=== PATIENT | female | born 1995 | race African-American/Black ===

== ENCOUNTER 2017-09-16 02:50 | Inpatient (IN) | payer OTHER, MEDICAID ==
[2017-09-16 03:22] LABS: APPEARANCE,URINE CLOUDY; BILIRUBIN,URINE NEGATIVE (NEGATIVE); COLOR,URINE YELLOW; GLUCOSE, URINE NEGATIVE (NEGATIVE); KETONES,URINE TRACE mg/dL (NEGATIVE); LEUKOCYTE ESTERASE,URINE MODERATE (NEGATIVE); NITRITE,URINE NEGATIVE (NEGATIVE); PROTEIN,URINE 30 mg/dL (NEGATIVE)
[2017-09-16] MEDS ORDERED: MISOPROSTOL 0.2 MG TABLET ONE (03:23)
[2017-09-16] MEDS ORDERED: EPHEDRINE SULFATE INJ 50 MG/1 ML AMPULE ONE (03:24)
[2017-09-16] MEDS ORDERED: BUPIVACAINE HCL 0.25 % INJ/PF (2.5 MG/1 ML) 30 ML VIAL ONE (03:24)
[2017-09-16] MEDS ORDERED: LIDOCAINE 1% INJ-PF (10 MG/ML) 30 ML SDV ONE (03:24)
[2017-09-16] MEDS ORDERED: OXYTOCIN/NORMAL SALINE 20 UNIT/1,000 ML RTUINJ ONE (03:24)
[2017-09-16] MEDS ORDERED: RINGERS SOLUTION,LACTATED 1,000 ML IV PRN (03:26)
--- NOTE | 2017-09-16 03:32 | Admission Physical ---
Datetime Report Generated by CPN: 09/16/2017 03:31 CURRENT ADMISSION Chief Complaint: Uterine Contractions Indication for Induction: Not Applicable Admit Impression : Active Labor Admit Plan: Admit to Unit; Initiate Labor Protocol ALLERGIES Medication Allergies: No OBSTETRICAL HISTORY EDC: 09/19/2017 00:00 : 1 Para: 0 INFECTIOUS HISTORY Infectious History Comments: 1.19 + chlam TATA 2.5.18; pos chlam at 36 weeks. chlam repeated 5.31 PHYSICAL EXAM General: Normal HEENT: Normal Neurologic: Normal Thyroid: Normal Heart: Normal Lungs: Normal Breast: Deferred Back: Normal Abdomen: Normal Genitourinary Exam: Normal Extremities: Normal DTRs: Normal Pelvic Type: Adequate Vital Signs: Reviewed VAGINAL EXAM Dilatation: 9 Effacement: 100 Station: 2 MEMBRANES Pooling: Negative Membranes: Intact FETUS A EGA: 39.4 Monitoring: External US FHR- Baseline: 120 Variability: Moderate 6-25bpm Accelerations: 15X15 Decelerations: None FHR Category: Category I Presentation: Vertex Admit Comment: EFW is 7 lbs PLANS FOR LABOR AND DELIVERY Labor and Delivery: None Pain Management: None Feeding Preference: Breast Benefit of Breast Feed Discussed: Yes INFORMED CONSENT Signature: with User ID: [email or web address]
[2017-09-16 03:46] LABS: URINE AMPHETAMINES SCREEN NEGATIVE; URINE BARBITURATES SCREEN NEGATIVE; URINE BENZODIAZEPINES SCREEN NEGATIVE; URINE COCAINE SCREEN NEGATIVE; URINE MARIJUANA (THC) SCREEN NEGATIVE; URINE METHADONE SCREEN NEGATIVE; URINE PHENCYCLIDINE SCREEN NEGATIVE
[2017-09-16 04:09] LABS: ABSOLUTE LYMPHOCYTES (AUTO) 1.3 10^3/uL (0.5-4.7); ABSOLUTE MONOCYTES (AUTO) 0.8 10^3/uL (0.1-1.4); ABSOLUTE NEUT (AUTO) 7.6 10^3/uL (1.7-8.2); BASOPHILS % (AUTO) 0.1 % (0-2); EOSINOPHILS % (AUTO) 0.4 % (0-6); HEMATOCRIT 34.1 % (36.0-47.0); HEMOGLOBIN 11.7 g/dL (12.0-15.5); LYMPHOCYTES % (AUTO) 13.4 % (13-45); MEAN CORPUSCULAR HEMOGLOBIN 30.3 pg (27.0-33.4); MEAN CORPUSCULAR HGB CONC 34.2 g/dL (32.0-36.0); MEAN CORPUSCULAR VOLUME 89 fl (80-97); MONOCYTES % (AUTO) 8.2 % (3-13); PLATELET COUNT 209 10^3/uL (150-450); RED BLOOD COUNT 3.84 10^6/uL (3.72-5.28); RED CELL DISTRIBUTION WIDTH 13.8 % (11.5-14.0); SEGMENTED NEUTROPHILS % (AUTO) 77.9 % (42-78); TOTAL CELLS COUNTED % (AUTO) 100 %; WHITE BLOOD COUNT 9.7 10^3/uL (4.0-10.5)
[2017-09-16 06:16] LABS: CHLAM PCR NOT DETECTED (NOT DETECT); GON PCR NOT DETECTED (NOT DETECT)
[2017-09-16] MEDS ORDERED: PROMETHAZINE HCL INJ 25 MG/1 ML VIAL IV PRN (06:20)
[2017-09-16] MEDS ORDERED: GLYCERIN/WITCH HAZEL LEAF 1 EACH MED..PAD TP PRN (06:20)
[2017-09-16] MEDS ORDERED: OXYTOCIN/NORMAL SALINE 20 UNIT/1,000 ML RTUINJ IV PRN (06:20)
[2017-09-16] MEDS ORDERED: BENZOCAINE/MENTHOL AEROSOL SPRAY 56 ML TOP PRN (06:20)
[2017-09-16] MEDS ORDERED: NA PHOS,M-B/NA PHOS,DI-BA (ADULT) 133 ML ENEMA PR PRN (06:20)
[2017-09-16] MEDS ORDERED: DIPHENHYDRAMINE HCL 25 MG CAPSULE PO PRN (06:20)
[2017-09-16] MEDS ORDERED: ACETAMINOPHEN 650 MG SUPP.RECT PR PRN (06:20)
[2017-09-16] MEDS ORDERED: PROMETHAZINE HCL 25 MG TABLET PO PRN (06:20)
[2017-09-16] MEDS ORDERED: MAGNESIUM HYDROXIDE SUSP 30 ML UDCUP PO PRN (06:20)
[2017-09-16] MEDS ORDERED: DIBUCAINE 1% OINTMENT 28 GM TP PRN (06:20)
[2017-09-16] MEDS ORDERED: PSEUDOEPHEDRINE HCL 30 MG TABLET PO PRN (06:20)
[2017-09-16] MEDS ORDERED: ACETAMINOPHEN WITH CODEINE #3 TABLET PO PRN ×2 (06:20)
[2017-09-16] MEDS ORDERED: ZOLPIDEM TARTRATE 5 MG TABLET PO PRN (06:20)
[2017-09-16] MEDS ORDERED: MEASLES,MUMPS&RUBELLA VACC/PF 0.5 ML VIAL SUBCUT PRN (06:20)
[2017-09-16] MEDS ORDERED: PROMETHAZINE HCL 25 MG SUPP.RECT PR PRN (06:20)
[2017-09-16] MEDS ORDERED: DIPH/PERTUSS(ACELL)/TETANUS VAC/PF 0.5 ML SYR (>=10YO) IM PRN (06:20)
[2017-09-16] MEDS ORDERED: IBUPROFEN 800 MG TABLET ONE (06:23)
[2017-09-16] MEDS ORDERED: ACETAMINOPHEN WITH CODEINE #3 TABLET ONE (06:51)
--- NOTE | 2017-09-16 08:01 | Delivery Summary ---
Del Sum A-C Datetime Report Generated by CPN: 09/16/2017 08:01 DELIVERY PERSONNEL DELIVERY PERSONNEL: [id number] Delivery Doctor:: Mainor Daugherty MD Labor and Delivery Nurse:: Sherice Aaron RN Sweatband Drummer:: Haley Albright RN Personal Lines Sales Rep/AERIAL LINEMAN: Radha Monreal CNA Additional Personnel: : Sweta Rivas RN MATERNAL INFORMATION Delivery Anesthesia: None Medications After Delivery: Pitocin Bolus-Please Comment Meds After Delivery Comment: pitocin 20 units/1000 ml NS Estimated Blood Loss (ml): 250 Maternal Complications: None LABOR SUMMARY EDC: 09/19/2017 00:00 No. Babies in Womb: 1 Attempted: No Labor Anesthesia: None LABOR INFORMATION Reason for Induction: Not Applicable Onset of Labor: 09/15/2017 23:00 Complete Dilatation: 09/16/2017 05:22 Oxytocin: N/A Group B Beta Strep: negative Antibiotics # of Doses: 0 Antibiotics Time of Last Dose: n/a Steroids Given: None Reason Steroids Not Administered: Not Applicable MEMBRANES Membranes Rupture Method: Artificial Rupture of Membranes: 09/16/2017 04:22 Length of Rupture (hr): 1.67 Amniotic Fluid Color: Clear Amniotic Fluid Amount: Small Amniotic Fluid Odor: Normal STAGES OF LABOR Stage 1 hr: 6 Stage 1 min: 22 Stage 2 hr: 0 Stage 2 min: 40 Stage 3 hr: 0 Stage 3 min: 3 Total Time in Labor hr: 7 Total Time in Labor min: 5 VAGINAL DELIVERY Episiotomy: None Laceration #1: Perineal Laceration Extension #1: Second Degree Laceration #2: None Laceration Extension #2: N/A Laceration #3: None Laceration Extension #3: N/A Laceration Repair: Yes Laceration Repair Note: perineal laceration repaired with 3-0 chromic in usual fashion. Sponge Count Correct: N/A; Vaginal Sweep Performed Sharps Count Correct: N/A CSECTION DELIVERY Primary Indication: N/A Secondary Indication: N/A CSection Incidence: N/A Labor: N/A Elective: N/A CSection Incision: N/A BABY A INFORMATION Infant Delivery Date/Time: 09/16/2017 06:02 Method of Delivery: Vaginal Born in Route : No : N/A Forceps: N/A Vacuum Extraction: N/A Shoulder Dystocia : No PRESENTATION/POSITION BABY A Presentation: Cephalic Cephalic Presentation: Vertex Vertex Position: Left Occipital Anterior Breech Presentation: N/A PLACENTA INFORMATION BABY A Placenta Delivery Time : 09/16/2017 06:05 Placenta Method of Delivery: Spontaneous Placenta Status: Delivered SCORES BABY A Heart Rate 1 min: >100 bpm Resp Effort 1 min: Good Cry Reflex Irritability 1 min: Cough or Sneeze or Pulls Away Muscle Tone 1 min: Active Motion Color 1 min: Blue/Pale SCORE 1 MIN: 8 Heart Rate 5 min: >100 bpm Resp Effort 5 min: Good Cry Reflex Irritability 5 min: Cough or Sneeze or Pulls Away Muscle Tone 5 min: Active Motion Color 5 min: Body [place], Extremities Blue SCORE 5 MIN: 9 INFORMATION BABY A Gestational Age at Delivery: 39.4 Gestational Status: Full Term- 39- 40.6 Weeks Outcome : Liveborn Infant Condition : Stable Sex: Male IDENTIFICATION BABY A Verification Date/Time: 09/16/2017 06:14 ID Band Number: [id number] Mother's Name Verified: Yes Infant RN Verifying : Rob, Kay. RN Additional Verifying Personnel: K. Jose Ramon RN WEIGHT/LENGTH BABY A Infant Birthweight (gm): 3410 Infant Weight (lb): 7 Weight (oz): 8 Length (in): 19.75 Infant Length (cm): 50.17 CORD INFORMATION BABY A No. Cord Vessels: 3 Nuchal Cord : Around Neck x1, Loose Cord Blood Taken: Yes-For Eval (Mom's Blood Type - or O+) Infant Suction: Mouth; Nose ASSESSMENT BABY A Infant Complications: None Physical Findings at Delivery: Within Normal Limits Physical Findings- Other: intial assessment to be performed by nursery nurse Infant Respirations: Appears Normal Skin to Skin: Yes Professor Of Religious Studies/ALS Called : No Care By: Avila Albright, RN Transferred To: Remains with Mother BABY B INFORMATION : N/A SIGNATURES Signature: with User ID: [email or web address]
[2017-09-16] MEDS: FAMOTIDINE 20 MG TABLET PO SCH ×2 (10:55→21:25)
[2017-09-16] MEDS: DOCUSATE SODIUM 100 MG CAPSULE PO SCH ×2 (10:55→18:27)
[2017-09-16] MEDS: SENNOSIDES/DOCUSATE 8.6-50 MG 1 EACH TABLET PO SCH (10:55)
[2017-09-16] MEDS: PRENATAL VITAMIN W DHA CAPSULE PO SCH (10:55)
[2017-09-16] MEDS: FERROUS SULFATE 325 MG TABLET PO SCH ×2 (10:56→18:26)
[2017-09-16] MEDS: IBUPROFEN 800 MG TABLET PO SCH ×2 (14:26→21:25)
[2017-09-17] MEDS: IBUPROFEN 800 MG TABLET PO SCH ×3 (06:00→22:50)
[2017-09-17 06:59] LABS: HEMATOCRIT 32.5 % (36.0-47.0); MEAN CORPUSCULAR HGB CONC 33.7 g/dL (32.0-36.0); MEAN CORPUSCULAR VOLUME 89 fl (80-97); PLATELET COUNT 192 10^3/uL (150-450); RED BLOOD COUNT 3.66 10^6/uL (3.72-5.28); RED CELL DISTRIBUTION WIDTH 13.9 % (11.5-14.0); WHITE BLOOD COUNT 10.5 10^3/uL (4.0-10.5)
[2017-09-17] MEDS: FERROUS SULFATE 325 MG TABLET PO SCH ×2 (09:43→17:25)
[2017-09-17] MEDS: SENNOSIDES/DOCUSATE 8.6-50 MG 1 EACH TABLET PO SCH (09:43)
[2017-09-17] MEDS: FAMOTIDINE 20 MG TABLET PO SCH ×2 (09:44→22:50)
[2017-09-17] MEDS: PRENATAL VITAMIN W DHA CAPSULE PO SCH (09:44)
[2017-09-17] MEDS: DOCUSATE SODIUM 100 MG CAPSULE PO SCH ×2 (09:44→17:25)
--- NOTE | 2017-09-17 09:54 | PDOC PROGRESS REPORT ---
Subjective-OB Progress Note for:: 09/17/17 Subjective: reports bleeding slowing, tolerating diet, pain controlled with current meds, no complaints Physical Exam (OB) Vital Signs: Temp Pulse Resp BP Pulse Ox 98.6 F 68 18 117/65 100 09/17/17 07:34 09/17/17 07:34 09/17/17 07:34 09/17/17 07:34 09/17/17 07:34 Intake & Output 09/16/17 09/17/17 09/18/17 06:59 06:59 06:59 Intake Total 450 240 Balance 450 240 Weight 70.6 kg - Abdomen Description: Tender, Soft, Round Hernia Present: No Fundal Description: Firm, Midline Fundal Height: u/u - u/2 - Abdominal Inspection: Normal Tenderness: Nontender - Extremities Lower extremities: Lynda's sign - neg Calf: Normal, Nontender Objective-Diagnostic Laboratory: 09/17/17 06:44 09/17/17 06:44 WBC 10.5 RBC 3.66 L Hgb 11.0 L Hct 32.5 L MCV 89 MCH 30.0 MCHC 33.7 RDW 13.9 Plt Count 192 Assessment and Plan(PN) - Assessment and Plan (1) Normal vaginal delivery Is this a current diagnosis for this admission?: Yes - Time Spent with Patient Time with patient: Less than 15 minutes - Disposition Anticipated Discharge: Home Within: within 24 hours
[2017-09-18] MEDS: IBUPROFEN 800 MG TABLET PO SCH (06:33)
[2017-09-18 08:32] VITALS: BP 112/67
[2017-09-18] MEDS: FERROUS SULFATE 325 MG TABLET PO SCH (10:17)
[2017-09-18] MEDS: PRENATAL VITAMIN W DHA CAPSULE PO SCH (10:17)
[2017-09-18] MEDS: DOCUSATE SODIUM 100 MG CAPSULE PO SCH (10:17)
[2017-09-18] MEDS: SENNOSIDES/DOCUSATE 8.6-50 MG 1 EACH TABLET PO SCH (10:17)
[2017-09-18] MEDS: FAMOTIDINE 20 MG TABLET PO SCH (10:17)
--- NOTE | 2017-09-18 12:05 | PDOC DISCHARGE SUMMARY ---
Final Diagnosis Discharge Date: 09/18/17 - Final Diagnosis (1) Perineal laceration during delivery Is this a current diagnosis for this admission?: Yes (2) Normal vaginal delivery Is this a current diagnosis for this admission?: Yes Discharge Data - Discharge Medication Prescriptions: Ibuprofen [Motrin 800 mg Tablet] 800 mg PO Q8HP PRN #60 tablet PRN Reason: Docusate Sodium [Colace 100 mg Capsule] 100 mg PO BID #60 capsule Home Medications: Ferrous Sulfate [Iron] 325 mg PO DAILY 09/16/17 Vit,Calc76/Iron/Folic [Pnv 29-1 Tablet] 1 tab PO DAILY 09/16/17 Docusate Sodium [Colace 100 mg Capsule] 100 mg PO BID #60 capsule 09/18/17 Ibuprofen [Motrin 800 mg Tablet] 800 mg PO Q8HP PRN #60 tablet 09/18/17 Reason(s) for Admission: Onset of Labor Procedures: Ultrasound Intrapartum Procedure(s): Spontaneous Vaginal Delivery Complication(s): Laceration-Perineal Laceration-Degree: 2nd - Diagnosis Test Laboratory: Temp Pulse Resp BP Pulse Ox 98.1 F 59 L 20 112/67 100 09/18/17 08:08 09/18/17 08:08 09/18/17 08:08 09/18/17 08:08 09/18/17 08:08 09/16/17 09/16/17 09/17/17 02:56 03:58 06:44 RBC 3.84 3.66 L Hgb 11.7 L 11.0 L Hct 34.1 L 32.5 L Urine Opiates Screen NEGATIVE - Discharge information/Instructions Discharge Activity: Activity As Tolerated, Balance Activity w/Rest, No Lifting Over 10 Pounds, No Lifting/Push/Pulling, Pelvic Rest, No tub bath, Walk Frequently Discharge Diet: Regular Disposition: HOME, SELF-CARE Follow up with: [facility] in: 4, Weeks
== END 2017-09-18 14:03 | disposition home or self-care (01) | DRG 775 ==
LOC: LC 02:50 → LR 03:26 → 2S 08:17
PROVIDERS: ADMIT Obstetrics & Gynecology; ATTEND Obstetrics & Gynecology
PROC: 10E0XZZ Delivery of Products of Conception, External Approach (ICD-10-PCS; principal; 2017-09-16)
PROC: 0KQM0ZZ Repair Perineum Muscle, Open Approach (ICD-10-PCS; 2017-09-16)
PROC: 10907ZC Drainage of Amniotic Fluid, Therapeutic from Products of Conception, Via Natural or Artificial Opening (ICD-10-PCS; 2017-09-16)
PROC: 4A1HXCZ Monitoring of Products of Conception, Cardiac Rate, External Approach (ICD-10-PCS; 2017-09-16)
DX: O69.81X0 Labor and delivery complicated by cord around neck, without compression, not applicable or unspecified (principal); O70.1 Second degree perineal laceration during delivery; Z3A.39 39 weeks gestation of pregnancy; Z37.0 Single live birth
CPT/HCPCS: 36415; 80307; 81005; 85025; 85027; 86592; 86850; 86900; 86901; 87491; 87591; J2590; J3490

== ENCOUNTER 2017-09-21 21:50 | Emergency (ER) | payer MEDICAID, OTHER ==
--- NOTE | 2017-09-21 23:59 | ER Document Report ---
ED General - General Chief Complaint: Foreign Body Stated Complaint: FOREIGN OBJECT IN THROAT Time Seen by Provider: 09/21/17 23:49 Mode of Arrival: Ambulatory Information source: Patient Notes: 21-year-old female 5 days and presents with complaint of "I feel like something is stuck in my throat". Patient states that yesterday she swallowed an ibuprofen without water and since then she has had the sensation of something being stuck in the middle of her chest. Patient also complaining of left sided headache that started 1 day prior to arrival and was not improved with Tylenol or Motrin. Patient reports a normal vaginal delivery without complications performed by Dr. Daugherty at [facility]. TRAVEL OUTSIDE OF THE [place] IN LAST 30 DAYS: No - HPI Onset: Yesterday Onset/Duration: Gradual, Persistent, Worse Quality of pain: Throbbing Severity: Moderate Associated symptoms: denies: Fever Exacerbated by: Denies Relieved by: Denies Similar symptoms previously: No Recently seen / treated by doctor: Yes - Related Data Allergies/Adverse Reactions: No Known Allergies Allergy (Verified 09/16/17 06:30) Past Medical History - General Information source: Patient, Parent, [facility] Records - Social History Smoking Status: Never Smoker Frequency of alcohol use: None Drug Abuse: None Lives with: Family Family History: Reviewed & Not Pertinent Patient has suicidal ideation: No Patient has homicidal ideation: No - Past Medical History Cardiac Medical History: Reports: None Review of Systems - Review of Systems Notes: REVIEW OF SYSTEMS: CONSTITUTIONAL : Denies fever, chills, or sweats. Denies recent illness. Denies weight loss, recent hospitalizations. EENT: Denies visual changes, eye pain. Denies nasal or sinus congestion or discharge. Denies oral lesions, difficulty swallowing. CARDIOVASCULAR: Denies chest pain. Denies palpitations or racing or irregular heart beat. Denies lower extremity edema. RESPIRATORY: Denies cough, cold, or chest congestion. Denies shortness of breath, difficulty breathing, or wheezing. GASTROINTESTINAL: Denies abdominal pain or distention. Denies nausea, vomiting , or diarrhea. Denies blood in vomitus, stools, or per rectum. Denies black, tarry stools. Denies constipation. GENITOURINARY: Denies difficulty urinating, painful urination, burning, frequency, blood in urine, or vaginal discharge. MUSCULOSKELETAL: Denies back or neck pain or stiffness. Denies joint pain or swelling. SKIN: Denies rash, lesions or sores. HEMATOLOGIC : Denies easy bruising or bleeding. LYMPHATIC: Denies swollen, enlarged glands. NEUROLOGICAL: Denies confusion or altered mental status. Denies passing out or loss of consciousness. Denies dizziness or lightheadedness. Denies headache. Denies weakness or paralysis or loss of use of either side. Denies problems with gait or speech. Denies sensory loss, numbness, or tingling. Denies seizures. PSYCHIATRIC: Denies anxiety or stress. Denies depression, suicidal ideation, or homicidal ideation. Constitutional: denies: Fever, Weakness EENT: denies: Eye discharge, Blurred vision Cardiovascular: Chest pain - Foreign body sensation. denies: Syncope Respiratory: denies: Short of breath, Wheezing Gastrointestinal: denies: Abdominal pain, Nausea, Vomiting Genitourinary: denies: Dysuria Female Genitourinary: Other - 5 days Musculoskeletal: No symptoms reported Skin: No symptoms reported Neurological/Psychological: Headaches -: Yes All other systems reviewed and negative Physical Exam - Vital signs Vitals: Pulse Resp BP Pulse Ox 98 16 166/110 H 98 09/21/17 22:34 09/21/17 22:34 09/21/17 22:34 09/21/17 22:34 - Notes Notes: PHYSICAL EXAMINATION: GENERAL: Well-appearing, well-nourished and in no acute distress. HEAD: Atraumatic, normocephalic. EYES: Pupils equal round and reactive to light, extraocular movements intact, conjunctiva are normal. ENT: Nares patent, oropharynx clear without exudates. Moist mucous membranes. NECK: Normal range of motion, supple without lymphadenopathy LUNGS: Breath sounds clear to auscultation bilaterally and equal. No wheezes rales or rhonchi. HEART: Regular rate and rhythm without murmurs ABDOMEN: Soft, nontender, nondistended abdomen. No guarding, no rebound. No masses appreciated. Female : deferred Musculoskeletal: Normal range of motion, no pitting or edema. No cyanosis. NEUROLOGICAL: Cranial nerves grossly intact. Normal speech, normal gait. Normal sensory, motor exams PSYCH: Normal mood, normal affect. SKIN: Warm, Dry, normal turgor, no rashes or lesions noted. Course - Re-evaluation Re-evalutation: 09/22/17 00:08 21-year-old female 5 days presents with initial complaint of a sensation of something stuck in her chest. She states that this occurred yesterday after taking Motrin. She has been able to tolerate fluids and eat but still has the sensation. Patient also mentioned a left sided headache which is not normal for her. Upon arrival vitals reviewed patient has a markedly elevated blood pressure of 166/110. Reviewing previous medical records patient's does not have a history of high blood pressure. I did speak to Dr. Cody Daugherty who delivered the patient and is on-call for [employer] and he recommends that the patient be brought up to labor check. Patient is agreeable with this. She was taken directly from the emergency room via wheelchair to labor and delivery. - Vital Signs Vital signs: Temp Pulse Resp BP Pulse Ox 98 16 166/110 H 98 09/21/17 22:34 09/21/17 22:34 09/21/17 22:34 09/21/17 22:34 Discharge - Discharge Clinical Impression: Blood pressure elevated without history of HTN, hypertension Headache Qualifiers: Headache type: unspecified Headache chronicity pattern: unspecified pattern Intractability: not intractable Qualified Code(s): R51 - Headache Condition: Good Disposition: OTHER Instructions: High Blood Pressure ([facility]) Additional Instructions: You will be taken directly to labor check. Forms: Elevated Blood Pressure Referrals: YARON DAUGHERTY MD [Primary Care Provider] - Follow up as needed
[2017-09-22 00:32] VITALS: BP 167/103
== END 2017-09-22 00:20 | disposition other institution (70) ==
LOC: ER 21:50
DX: O13.5 Gestational [pregnancy-induced] hypertension without significant proteinuria, complicating the puerperium (principal); R51 Headache; R03.0 Elevated blood-pressure reading, without diagnosis of hypertension; R09.89 Other specified symptoms and signs involving the circulatory and respiratory systems; R07.9 Chest pain, unspecified
CPT/HCPCS: 99283

== ENCOUNTER 2017-09-22 00:16 | Outpatient (CLI) | payer OTHER ==
[2017-09-22 00:40] LABS: HEMATOCRIT 34.8 % (36.0-47.0); HEMOGLOBIN 11.6 g/dL (12.0-15.5); MEAN CORPUSCULAR HEMOGLOBIN 29.5 pg (27.0-33.4); MEAN CORPUSCULAR HGB CONC 33.4 g/dL (32.0-36.0); MEAN CORPUSCULAR VOLUME 88 fl (80-97); PLATELET COUNT 260 10^3/uL (150-450); RED BLOOD COUNT 3.94 10^6/uL (3.72-5.28); RED CELL DISTRIBUTION WIDTH 13.4 % (11.5-14.0); WHITE BLOOD COUNT 9.3 10^3/uL (4.0-10.5)
[2017-09-22 01:03] LABS: BLOOD UREA NITROGEN 11 mg/dL (7-20); CALCIUM 9.6 mg/dL (8.4-10.2); GLUCOSE 81 mg/dL (75-110)
[2017-09-22 01:04] LABS: ALANINE AMINOTRANSFERASE 52 U/L (9-52); ALBUMIN 3.5 g/dL (3.5-5.0); ALKALINE PHOSPHATASE 88 U/L (38-126); ANION GAP 11 (5-19); ASPARTATE AMINO TRANSFERASE 32 U/L (14-36); BILIRUBIN,DIRECT 0.3 mg/dL (0.0-0.4); BILIRUBIN,TOTAL 0.4 mg/dL (0.2-1.3); CARBON DIOXIDE 27 mmol/L (22-30); CHLORIDE 108 mmol/L (98-107); LDH 892 U/L (313-618); POTASSIUM 4.3 mmol/L (3.6-5.0); SODIUM 145.6 mmol/L (137-145); TOTAL PROTEIN 6.5 g/dL (6.3-8.2); URIC ACID 5.4 mg/dL (2.5-6.2)
[2017-09-22] MEDS ORDERED: HYDRALAZINE HCL INJ/PF 20 MG/1 ML SDV IV ONE (01:20)
[2017-09-22] MEDS ORDERED: RINGERS SOLUTION,LACTATED 1,000 ML IV PRN (01:20)
[2017-09-22] MEDS ORDERED: HYDRALAZINE HCL INJ/PF 20 MG/1 ML SDV ONE (01:34)
[2017-09-22] MEDS ORDERED: LABETALOL HCL 200 MG TABLET PO ONE (03:50)
[2017-09-22] MEDS ORDERED: LABETALOL HCL 200 MG TABLET ONE (03:52)
== END 2017-09-22 05:29 | disposition home or self-care (01) ==
LOC: LC 00:16
PROVIDERS: ATTEND Obstetrics & Gynecology
DX: O16.5 Unspecified maternal hypertension, complicating the puerperium (principal); R51 Headache
CPT/HCPCS: 36415; 83615; 84550; 85027; 80053; J0360

== ENCOUNTER 2017-12-08 15:39 | Emergency (ER) | payer MEDICAID, OTHER ==
[2017-12-08 15:58] VITALS: BP 122/79
[2017-12-08] MEDS ORDERED: IBUPROFEN 800 MG TABLET PO ONE (16:17)
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
== END 2017-12-08 16:25 | disposition home or self-care (01) ==
LOC: ER 15:39
DX: M25.532 Pain in left wrist (principal); M77.9 Enthesopathy, unspecified
CPT/HCPCS: 99283; L3908; J3490